=== PATIENT | male | born 1955 | race Asian ===

== ENCOUNTER 2018-02-08 11:39 | Emergency (ER) | payer OTHER ==
[~2018-02-08] VITALS: Ht 165.1 cm; Wt 83.9 kg
[2018-02-08] MEDS ORDERED: ULTRAM PO (11:49)
--- NOTE | 2018-02-08 14:07 | NUR ---
PT IS IN ROOM #2B. DR LAWLER EVALUATED THE PT.
--- NOTE | 2018-02-08 16:17 | NUR ---
PT STATED THAT HE CAN NOT WAIT FOR DISCHARGE PAPERS ANY MORE. ZURI GOLDMAN ASK PT TO WAIT IN HIS ROOM UNTIL DR LAWLER WILL PRINT D/C INSTRUCTIONS, BUT PT REFUSED TO WAIT AND LEFT ED DEPARTMENT. DR LAWLER NOTIFIED.
== END 2018-02-08 17:17 | disposition left against medical advice (07) ==
LOC: ER 11:46
DX: S90.31XA Contusion of right foot, initial encounter (principal); Z79.899 Other long term (current) drug therapy; V03.99XA Pedestrian with other conveyance injured in collision with car, pick-up truck or van, unspecified whether traffic or nontraffic accident, initial encounter; Y93.89 Activity, other specified; Y92.410 Unspecified street and highway as the place of occurrence of the external cause; Y99.9 Unspecified external cause status
CPT/HCPCS: 73630; 99284; A4663